=== PATIENT | female | born 1980 | race Caucasian/White ===

== ENCOUNTER → 2018-09-05 08:44 | Outpatient (CLI) | payer BC | END | disposition home or self-care (01) | LOC: D.MRI 08:44 | PROVIDERS: ATTEND Emergency Medicine | DX: M54.12 Radiculopathy, cervical region (principal) ==

== ENCOUNTER → 2018-09-11 12:37 | Outpatient (CLI) | payer BC | END | disposition home or self-care (01) | LOC: D.CT 09:00 | PROVIDERS: ATTEND Emergency Medicine | DX: M54.2 Cervicalgia (principal) ==